=== PATIENT | male | born 1960 | race Caucasian/White ===

== ENCOUNTER 2019-07-29 13:25 | Emergency (ER) | payer OTHER, SELFPAY ==
[2019-07-29 13:27] VITALS: BP 132/76; PULSE 74; PULSE 77; RESP 17; RESP 18; TEMP 36.3; O2SAT 95; O2SAT 96; BMI 27.6
[2019-07-29 13:36] VITALS: BMI 27.6
--- NOTE | 2019-07-29 13:50 | ED.DCSUM_ITS ---
History of Present Illness Chief Complaint: Neuro S/Sx Informant: Patient, Significant Other Onset: Days Context: Gradual Onset Timing: Continuous Narrative: Patient is a 59-year-old male with no known past medical history presenting with 3 days of left-sided facial drooping. Patient first noticed it on Monday. Is progressed and now he states that he cannot really move his eyebrow or forehead either on the left side. He states his eyes felt a little dry but denies any significant tearing or any change in vision. He denies any other symptoms such as paresthesias, arm weakness or difficulty swallowing. States he has had some mild soreness of his neck on the left side for the past few days is not sure if it is related. He denies any other complaints this time. He denies any history of Alonso's palsy. Past Medical History - Allergies and Home Meds Allergies/Adverse Reactions: Allergies No Known Allergies Allergy (Verified 07/29/19 13:38) Primary Care Physician: Semaj Escobar MD [Primary Care Provider] - Past Medical History: None Surgical History: noncontributory Lives: Spouse/ Significant Other Smoking Status: Never smoker Review of Systems General: Denies: Chills, Fever, Sweats Eyes: Reports: - - Difficulty closing the left eye. Denies: Visual changes - bilaterally, Diplopia ENT: Denies: Rhinorrhea, Sore throat Cardiovascular: Denies: Chest pain, Palpitations Respiratory: Denies: Dyspnea, Cough, Dyspnea on exertion Gastrointestinal: Denies: Abdominal pain, Nausea, Vomiting, Diarrhea, Melena, Hematochezia Genitourinary: Denies: Dysuria, Hematuria, Frequency Musculoskeletal: Reports: Neck pain - Left-sided, mild. Denies: Back pain, Extremity Pain Skin: Denies: Rash, Wounds Neurological: Reports: - - Left facial droop including the forehead. Denies: Headache, Weakness, Numbness Physical Exam Vital Signs/Narrative: Vital Signs Temp Pulse Resp BP Pulse Ox 07/29/19 13:27 97.3 F L 77 17 132/76 H 96 Inital Vital Signs reviewed: Yes General: Well nourished, Well developed, No Acute Distress Head: Normocephalic, Atraumatic Eyes: Perrl, EOMI, - - Weakness with blinking of the left eye ENT: Moist mucous membranes, No rhinorrhea, TM's clear, - - Left-sided facial droop including the forehead Neck: Supple, Nontender Cardiovascular: Regular rate, Regular rhythm, No murmurs Respiratory: No distress, CTA bilaterally, Chest nontender Abdomen: Soft, Nontender, Nondistended, Normal bowel sounds Back: Nontender, Normal Inspection Extremities: Nontender, No edema Skin: Normal color, No rash Neurological: Alert, Oriented x3, Normal Strength, Normal Sensation, Normal Gait, Left side facial droop. 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 He is not have any symptoms consistent with a corneal abrasion. Patient is counseled on the importance of taping his eye at night to prevent corneal abrasions. He will be started on prednisone to help limit the course of the Alonso's palsy. He does not have severe symptoms I do not think antivirals would be indicated at this time. As patient does not follow with a doctor regularly I did check a fingerstick glucose to ensure that he is not an undiagnosed diabetic as I am starting him on steroids. His blood glucose is 104. Patient is discharged home. Is given first dose of steroids in the emergency room. He is given return precautions. He is counseled the typical course of Alonso's palsy. ED Disposition - Plan for ED Patient: Disposition: Home or Assisted Living Diagnosis: Alonso's palsy Instructions: ED [place] [facility] Prescriptions: Prednisone [Deltasone] 60 mg PO DAILY 6 Days #18 tab Prescription Printed Referrals: Semaj Escobar MD [Primary Care Provider] - Additional Instructions: Make sure you patch your eye at night to prevent scratching of the eyeball. Apply lubricating eyedrops that can be bought [id number] as needed to prevent drying out of your eye. Please follow-up with your primary care doctor in a week or 2 especially if your symptoms are still persisting.
[2019-07-29 13:56] LABS: Bedside Glucose 104 mg/dL (70-110)
[2019-07-29 14:11] VITALS: BP 139/93; PULSE 86; RESP 18; O2SAT 97
[2019-07-29] MEDS: predniSONE 20 MG Tablet 60 MG PO (14:16)
== END 2019-07-29 14:19 | disposition home or self-care (01) ==
LOC: ED 14:06
PROVIDERS: Emergency Provider Emergency Medicine; PCP Family Medicine
DX: G51.0 Bell's palsy (principal)
CPT/HCPCS: 82962; 99283